=== PATIENT | female | born 1990 | race Two or more races ===

== ENCOUNTER 2019-04-05 13:03 | Observation (INO) | payer MEDICAID | END 2019-04-05 14:40 | disposition home or self-care (01) | DRG 566 | LOC: LDRP 13:03 | PROVIDERS: ADMIT Obstetrics & Gynecology; ATTEND Obstetrics & Gynecology | DX: O48.0 Post-term pregnancy (principal); Z3A.40 40 weeks gestation of pregnancy | CPT/HCPCS: 59025; 76818; 81002; G0378 ==

== ENCOUNTER 2019-04-07 10:10 | Observation (INO) | payer MEDICAID ==
[2019-04-07] MEDS ORDERED: PREN-96 PO (13:46)
== END 2019-04-07 11:42 | disposition home or self-care (01) | DRG 566 ==
LOC: LDRP 10:10
PROVIDERS: ADMIT Obstetrics & Gynecology; ATTEND Obstetrics & Gynecology
DX: O48.0 Post-term pregnancy (principal); Z3A.40 40 weeks gestation of pregnancy
CPT/HCPCS: 59025; 76818; 81002; G0378

== ENCOUNTER 2019-04-10 10:26 | Inpatient (IN) | payer MEDICAID ==
[~2019-04-10] VITALS: Ht 157.5 cm; Wt 71.7 kg
[~2019-04-10 10:26] MED LIST: PREN-96 PO
[2019-04-10] MEDS ORDERED: LACT. RINGERS/OXYTOCIN 20UNITS 1,000 ML IV SCH (11:56)
[2019-04-10] MEDS ORDERED: NALBUPHINE HCL 10 MG/1ml INJECTION IV PRN (12:00)
[2019-04-10] MEDS ORDERED: PHISODERM TOP SOLN 240ML BTL TOP PRN (12:00)
[2019-04-10] MEDS ORDERED: DERMOPLAST 60ML BOTTLE TOP PRN (12:00)
[2019-04-10] MEDS ORDERED: WITCH HAZEL-GLYCERIN PAD TOP PRN (12:00)
[2019-04-10] MEDS ORDERED: LIDOCAINE 2%HCL (LOCAL ANESTH.) INJ 20ML MDV ID PRN (12:00)
[2019-04-10 13:00] LABS: Mean Corpuscular Hgb Conc. 34.8 g/dL (32.0-36.0); Nucleated Red Blood Cells % 0.1 %
[2019-04-10 13:02] LABS: Basophils # (auto) 0 uL; Basophils % (auto) 0.2 % (0.0-2.0); Eosinophils # (auto) 0 uL; Eosinophils % (auto) 0.1 % (0.0-7.0); Hemoglobin 12.9 g/dL (12.2-16.2); Lymphocytes # (auto) 1.6 uL; Mean Corpuscular Hemoglobin 35.8 pg (28.0-32.0); Mean Corpuscular Volume 102.9 fL (80.0-100.0); Monocytes # (auto) 0.5 uL; Monocytes % (auto) 7.7 % (0.0-12.0); Neutrophils # (auto) 4.3 uL; Platelet Count (auto) 137 10^3/uL (140-450); Red Cell Distribution Width 14.1 % (11.8-14.3); White Blood Cell 6.4 10^3/uL (4.4-10.8)
[2019-04-10 13:07] LABS: Urine Bacteria FEW /hpf (None Seen); Urine Blood Negative /uL (Negative); Urine Mucus FEW (None Seen); Urine Specific Gravity 1.017 (1.001-1.035); Urine WBC 1 /hpf (0 - 5)
[2019-04-10 13:15] LABS: Calcium 8.4 mg/dL (8.5-10.1); INR 0.88 (0.9-1.15); Partial Thromboplastin Time 25.9 sec (23.64-32.05); Prothrombin Time 9.6 sec (9.06-12.60)
[2019-04-10 13:18] LABS: BUN/Creatinine Ratio 10.3; Bilirubin, Total 0.8 mg/dL (0.2-1.0)
[2019-04-10] MEDS: LACTATED RINGER'S 1,000 ML IV SCH ×2 (15:52→18:24)
[2019-04-11] MEDS: LACTATED RINGER'S 1,000 ML IV SCH (03:58)
[2019-04-11] MEDS ORDERED: CARBOPROST TROMETHAMINE 250 MCG/1ML VIAL IM PRN (08:00)
[2019-04-11] MEDS ORDERED: IBUPROFEN 600 MG TAB PO PRN (08:00)
[2019-04-11] MEDS ORDERED: METHYLERGONOVINE MALEATE 0.2 MG/ML AMP IM ONE (08:00)
[2019-04-11] MEDS ORDERED: ACETAMINOPHEN 325 MG TAB PO PRN (08:00)
[2019-04-11] MEDS ORDERED: ONDANSETRON HCL 4 MG/2 ML VIAL IV PRN (08:00)
--- NOTE | 2019-04-11 08:00 | NUR ---
Teaching: Reviewed information in [employer] booklet with patient. Discussed benefits of and risks associated with not . Discussed different positions, proper latch, feeding cues, and baby-led . latched on, bonding well. All questions and concerns addressed at this time. Patient verbalized understanding of information.
[2019-04-11] MEDS ORDERED: LACT. RINGERS/OXYTOCIN 20UNITS 1,000 ML IV SCH (08:56)
--- NOTE | 2019-04-11 09:45 | NUR ---
Ambulation: Patient OOB with standby assistance by RN. Patient ambulated to bathroom with steady gait. Patient able to void 800 without difficulty. [facility] teaching provided with returned demonstration by patient. Clean gown provided and bed linen changed. Patient ambulated back to bed with steady gait and no distress noted.
[2019-04-11] MEDS: DOCUSATE CALCIUM 240 MG CAP PO SCH (10:16)
[2019-04-11 10:45] VITALS: BP 101/50
[2019-04-11 15:08] VITALS: BP 105/53
[2019-04-11 18:50] VITALS: BP 109/66
[2019-04-11 23:05] VITALS: BP 99/55
[2019-04-12 03:30] VITALS: BP 100/59
[2019-04-12 07:30] VITALS: BP 113/69
[2019-04-12 11:30] VITALS: BP 103/52
--- NOTE | 2019-04-12 11:54 | NUR ---
Discharge: Discharge instructions given as ordered. Pt encouraged to follow up with [facility] [employer] as instructed. All questions and concerns addressed. Patient verbalized understanding. Medication reconciliation completed and copy given to patient. Patient encouraged to prepare to depart unit.
[2019-04-12] MEDS: DOCUSATE CALCIUM 240 MG CAP PO SCH (11:58)
[2019-04-12 12:00] VITALS: BP 105/58
--- NOTE | 2019-04-12 12:35 | NUR ---
Discharge: Patient taken to vehicle via ambulated with all personal belongings, accompanied by staff and family member. No distress noted at time of departure, no adverse changes in status since initial assessment.
[2019-04-13 05:06] LABS: RPR Non Reactive (Non Reactive)
== END 2019-04-12 12:35 | disposition home or self-care (01) | DRG 560 ==
LOC: LDRP 10:26 → OBSVTOIN 11:57 → LDRP 04-11 23:06
PROVIDERS: ADMIT Specialist; ATTEND Specialist
PROC: 10E0XZZ Delivery of Products of Conception, External Approach (ICD-10-PCS; principal; 2019-04-11)
DX: O48.0 Post-term pregnancy (principal); Z37.0 Single live birth; Z3A.41 41 weeks gestation of pregnancy
CPT/HCPCS: 36415; 59025; 59409; 76818; 80053; 81001; 81002; 85025; 85610; 85730; 86592; 86850; 86900; 86901; 96361; 96365; 96366; 96374; G0378; J2590